=== PATIENT | male | born 1955 | race Two or more races ===

== ENCOUNTER 2021-05-25 16:36 | Emergency (ER) | payer OTHER ==
[~2021-05-25] VITALS: Ht 165.1 cm; Wt 74.8 kg
[2021-05-25 16:37] VITALS: BP 164/99
--- NOTE | 2021-05-25 16:40 | NUR ---
TRIAGE COMPLETED. SENT TO [facility], NO ACUTE DISTRESS. AMBULATORY FROM EMS GURNEY TO WHEELCHAIR.
--- NOTE | 2021-05-25 18:23 | NUR ---
CODE BRAIN CALL[facility]
--- NOTE | 2021-05-25 18:25 | NUR ---
PT TAKEN TO CT VIA W/C.
--- NOTE | 2021-05-25 18:36 | NUR ---
PT BROUGHT TO BED [address] VIA WHEELCHAIR
--- NOTE | 2021-05-25 18:47 | NUR ---
BLOOD DRAWN AT PT BEDSIDE, GAVE TO [employer] PI DEVELOPER.
--- NOTE | 2021-05-25 18:48 | NUR ---
66 Y/O MALE C/O RIGHT ARM TINGLING X 2 HOURS S/P EATING AT HOME. PT STATES NUMBNESS RADIATES TO RIGHT LEG, NIH 0, GCS 15, NO NEURO DEFECITS NOTED AT THIS TIME. DENIES PAINM, DENIES N/V, DENIES FEVER/CHILLS. PMH: HTN, HLD ALLERGIES: PCN
[2021-05-25 18:53] LABS: BASOPHILS # (AUTO) 0.1 K/uL (0.00-0.22); BASOPHILS % (AUTO) 0.7 % (0.0-2.0); EOSINOPHILS % (AUTO) 0.3 % (0.0-4.0); HEMATOCRIT 43.3 % (36-52); HEMOGLOBIN 14.6 g/dL (12.0-18.0); LYMPHOCYTES # (AUTO) 1.5 K/uL (2.0-11.5); LYMPHOCYTES % (AUTO) 18.6 % (20.5-51.1); MEAN CORPUSCULAR HEMOGLOBIN 32 pg (27-31); MEAN CORPUSCULAR HGB CONC 34 g/dL (33-37); MEAN CORPUSCULAR VOLUME 94.2 fL (80-94); MONOCYTES # (AUTO) 0.4 K/uL (0.8-1.0); MONOCYTES % (AUTO) 5.3 % (1.7-9.3); NEUTROPHILS # (AUTO) 5.9 K/uL (1.8-7.7); NEUTROPHILS % (AUTO) 75.1 % (42.2-75.2); PLATELET COUNT (AUTO) 201 K/uL (140-450); WHITE BLOOD COUNT (AUTO) 7.8 K/uL (4.8-10.8)
--- NOTE | 2021-05-25 19:00 | NUR ---
TELENEURO AT PT BEDSIDE.
[2021-05-25 19:02] LABS: ANION GAP 16.5 (8-16); CARBON DIOXIDE 25.6 mmol/L (21-32); POTASSIUM 4.1 mmol/L (3.5-5.1)
[2021-05-25 19:05] LABS: PROTHROMBIN TIME 10.8 secs (10.8-13.4)
[2021-05-25 19:07] LABS: ALBUMIN 3.9 g/dL (3.4-5.0); TOTAL BILIRUBIN 0.4 mg/dL (0.0-1.0)
[2021-05-25 19:12] LABS: APPEARANCE,URINE CLEAR (CLEAR); BILIRUBIN,URINE NEGATIVE (NEGATIVE); BLOOD, URINE NEGATIVE (NEGATIVE); COLOR,URINE YELLOW (YELLOW); LEUKOCYTE ESTERASE ,URINE NEGATIVE (NEGATIVE); NITRITE, URINE NEGATIVE (NEGATIVE); PH,URINE 7.5 (5.0-9.0); UGLUCOSE NEGATIVE (NEGATIVE)
--- NOTE | 2021-05-25 19:17 | NUR ---
LENORE DAUGHTER [phone]
--- NOTE | 2021-05-25 19:20 | NUR ---
GAVE REPORT TO SHANI MARTINEZ. TRANSFER OF CARE AT THIS.
--- NOTE | 2021-05-25 19:20 | NUR ---
REPORT RECEIVED FROM HSANI FORRESTER FOR CONTINUATION OF PATIENT CARE AT THIS TIME.
--- NOTE | 2021-05-25 19:42 | NUR ---
PATIENT LAYING IN BED LOCKED IN LOWEST POSITION W X1 SIDERAIL UP. HOB SLIGHTLY ELEVATED. PATIENT DENIES ANY PAIN. PATIENT REPORTS ONGOING TINGLING AND NUMBNESS TO R SIDE OF FACE, R ARM, R LED. DENIES ANY OTHER SYMPTOMS. NIH 1 (MILD DIMINISHED SENSATION TO R FACE, ARM, LEG). GCS 15, AOX4, PERRL. CONNECTED TO MONITOR W VSS. BREATHING EVEN AND UNLABORED. NAD NOTED, WILL CONTINUE TO MONITOR.
--- NOTE | 2021-05-25 19:45 | NUR ---
PATIENT REFUSED RENEE TEST.
--- NOTE | 2021-05-25 19:54 | NUR ---
[facility] [phone].
--- NOTE | 2021-05-25 20:40 | NUR ---
SPOKE TO [facility] FROM INSURANCE, PATIENT TO BE TRANSFERRED TO [facility]. UNKNOWN ETA. [facility] [phone]
--- NOTE | 2021-05-25 20:45 | NUR ---
PATIENT CONSENTED TO RENEE TEST.
--- NOTE | 2021-05-25 20:53 | NUR ---
RETURN CALL FROM PT FAMILY MONROY WHO SPOKE WITH PRIMARY RN Alfredo RON
--- NOTE | 2021-05-25 20:55 | NUR ---
SPOKE TO CYNTHIA, PATIENT DAUGHTER, GAVE UPDATE ON PATIENT STATUS. OK WITH PATIENT TO PROVIDE MEDICAL INFORMATION TO DAUGHTER.
--- NOTE | 2021-05-25 22:05 | NUR ---
PATIENT REQUESTING FOOD AND WATER. PER ERMD KEEP PATIENT NPO.
[2021-05-25] MEDS ORDERED: LISI-486 PO (22:23)
[2021-05-25] MEDS ORDERED: ATOR20TA PO (22:26)
[2021-05-25] MEDS ORDERED: ASPI-1822 PO (22:26)
--- NOTE | 2021-05-25 22:30 | NUR ---
PATIENT REPORTING 3/10 PULSATING HEADACHE, ERMD AWARE. PATIENT REFUSING ANY PAIN MEDICATION AT THIS TIME. PATIENT LAYING IN BED SUPINE, BED LOCKED IN LOWEST POSITION W X1 SIDEARIL UP. CONNECTED TO MONITOR W VSS. BREATHING EVEN AND UNLABORED. NAD NOTED, WILL CONTINUE TO MONITOR.
--- NOTE | 2021-05-25 23:00 | NUR ---
PATIENT APPEARS TO BE RESTING W EYES CLOSED. PATIENT LAYING IN BED LOCKED IN LOWEST POSITION W X1 SIDERAIL UP. BREATHING EVEN AND UNLABORED. CONNECTED TO MONITOR W VSS. NAD NOTED, WILL CONTINUE TO MONITOR.
--- NOTE | 2021-05-25 23:30 | NUR ---
Patient to be transferred to [facility]. Is being transferred due to INSURANCE. Receiving facility has accepting physician and available space. ER physician has signed transfer form. Patient or responsible constitution party has agreed to transfer and signed form. Patient belongings inventoried and will be sent with patient. Copy of nursing notes, lab reports, EKG, Physicians Orders and X-rays to be sent with patient. Report called to SHANI GARNER at receiving facility. [facility] ambulance service has been called for transfer. ETA is [phone].
--- NOTE | 2021-05-26 00:28 | NUR ---
PATIENT AMBULATED TO BATHROOM W STEADY GAIT. PATIENT DENIES DIZZINESS OR WEAKNESS. PATIENT HAS ONGOING HEADACE /, DOES NOT WANT PAIN MEDICATION.
--- NOTE | 2021-05-26 02:00 | NUR ---
PATIENT LAYING IN BED, HOB ELEVATED. BED LOCKED IN LOWEST POSITION W X1 SIDERAIL UP. PATIENT APPEARS TO BE RESTING W EYES CLOSED. PATIENT CONNECTED TO MONITOR W VSS. BREATHING EVEN AND UNLABORED. NAD NOTED, WILL CONTINUE TO MONITOR.
--- NOTE | 2021-05-26 04:00 | NUR ---
PATIENT LAYING IN BED LOCKED IN LOWEST POSITION W X1 SIDERAIL UP. PATIENT REPORTS HEADACHE 5/10 (DOES NOT WANT PAIN MEDICATIONS). PATIENT CONTINUES TO HAVE NUMBNESS AND TINGLING, MILD DIMINISHED SENSATION TO R FACE, R ARM, R LEG. NIH SCORE 1, NO NIH CHANGES. PATIENT CONNECTED TO MONITOR W VSS. BREATHING EVEN AND UNLABORED. NAD NOTED. WILL CONTINUE TO MONITOR.
--- NOTE | 2021-05-26 04:20 | NUR ---
PER [facility], ETA FOR PATIENT TRANSFER AT 0620.
--- NOTE | 2021-05-26 04:30 | NUR ---
SPOKE TO ELIANA SEVERINO FOR PATIENT UPDATE.
--- NOTE | 2021-05-26 06:00 | NUR ---
PATIENT LAYING SUPINE IN BED LOCKED IN LOWEST POSITION W X1 SIDERAIL UP. HOB SLIGHTLY ELEVATED. PATIENT APPEARS TO BE RESTING W EYES CLOSED, BREATHING EVEN AND UNLABORED. PATIENT CONNECTED TO MONITOR W VSS. NAD NOTED, WILL CONTINUE TO MONITOR.
--- NOTE | 2021-05-26 06:10 | NUR ---
PER [facility] ETA 1 HOUR FOR PATIENT TRANSFER.
--- NOTE | 2021-05-26 06:20 | NUR ---
PATIENT STOOD UP TO USE URINAL AT BEDSIDE, STEADY GAIT, NO C/O DIZZINESS. PATIENT REPORTS ONGOING NUMBNESS TINGLING R SIDE OF FACE, ARM AND LEG ([facility] SCORE 1). HEADACHE 3/10 (DOES NOT WANT PAIN MEDICATION). PATIENT RETURNED TO BED, CONNECTED TO MONITOR W VSS.
--- NOTE | 2021-05-26 06:49 | NUR ---
[facility] TRANSPORT AT BEDSIDE
[2021-05-26 07:00] VITALS: BP 128/84
--- NOTE | 2021-05-26 07:00 | NUR ---
PATIENT TRANSFERRED TO [facility] VIA [facility]. VSS.
--- NOTE | 2021-05-26 07:00 | NUR ---
PT TAKEN TO [facility] ROOM [id number] BY [facility]
== END 2021-05-26 07:00 | disposition short-term general hospital (02) ==
LOC: MED 16:36
DX: I63.9 Cerebral infarction, unspecified (principal); I10 Essential (primary) hypertension; Z88.0 Allergy status to penicillin; Z20.822 Contact with and (suspected) exposure to COVID-19
CPT/HCPCS: 36415; 70450; 71045; 80053; 81003; 84484; 85025; 85610; 85730; 86886; 86900; 86901; 93005; 99285; 99291